=== PATIENT | female | born 1985 | race Caucasian/White ===

== ENCOUNTER 2020-06-22 23:10 | Emergency (ER) | payer OTHER ==
[~2020-06-22] VITALS: Ht 172.7 cm; Wt 102.1 kg
[2020-06-22 23:58] VITALS: BP 115/76
[2020-06-23] MEDS ORDERED: IBUPROFEN 600 MG TABLET PO ONE
[2020-06-23] MEDS ORDERED: IBUPROFEN 600 MG TABLET ONE (00:19)
[2020-06-23] MEDS ORDERED: IBUP-1957 PO (00:30)
== END 2020-06-23 01:08 | disposition home or self-care (01) ==
LOC: ER 23:15
DX: S89.82XA Other specified injuries of left lower leg, initial encounter (principal); Z88.2 Allergy status to sulfonamides; Z88.6 Allergy status to analgesic agent; Z60.2 Problems related to living alone; Z79.899 Other long term (current) drug therapy; X58.XXXA Exposure to other specified factors, initial encounter; Y93.89 Activity, other specified; Y92.89 Other specified places as the place of occurrence of the external cause; Y99.8 Other external cause status
CPT/HCPCS: 73610-TC; 73630-TC

== ENCOUNTER 2022-08-10 23:56 | Emergency (ER) | payer BC, OTHER ==
[~2022-08-10] VITALS: Ht 177.8 cm; Wt 113.4 kg
[~2022-08-10 23:56] MED LIST: IBUP-1957 PO
--- NOTE | 2022-08-11 01:35 | NUR ---
CAME WITH CC OF LAC WOUND ON LEFT INDEX FINGER 1CM. PATIENT WAS USING POWER TOOLS AT AROUND 2300 AND WAS NOT PAYING ATTENTION AND SUSTAINED HAND INJURY. PLACED IN CHAIR. TETANUS SHOTS UPDATED.
--- NOTE | 2022-08-11 01:38 | NUR ---
SEEN AND EXAMINED BY DR HATFIELD
[2022-08-11 01:39] VITALS: TEMP 97.9
--- NOTE | 2022-08-11 02:29 | NUR ---
SUTURING OF WOUND DONE UNDER LOCAL ANESTHESIA
--- NOTE | 2022-08-11 02:39 | NUR ---
Patient discharged to home in stable condition. Written and verbal after care instructions given. Patient verbalizes understanding of instruction.
[2022-08-11 02:40] VITALS: BP 109/71
== END 2022-08-11 02:41 | disposition home or self-care (01) ==
LOC: ER 23:58
DX: S61.211A Laceration without foreign body of left index finger without damage to nail, initial encounter (principal); Z88.2 Allergy status to sulfonamides; Z88.8 Allergy status to other drugs, medicaments and biological substances; Z79.899 Other long term (current) drug therapy; W26.8XXA Contact with other sharp object(s), not elsewhere classified, initial encounter; Y93.89 Activity, other specified; Y92.89 Other specified places as the place of occurrence of the external cause; Y99.8 Other external cause status

== ENCOUNTER 2023-09-08 23:53 | Emergency (ER) | payer BC ==
[~2023-09-08] VITALS: Ht 175.3 cm; Wt 99.8 kg
[2023-09-09 00:47] LABS: BASOPHILS % (AUTO) 0.3 % (0.0-2.0); EOSINOPHILS # (AUTO) 0.2 K/uL (0.0-0.7); EOSINOPHILS % (AUTO) 2.5 % (0.0-6.0); HEMATOCRIT 41 % (33-45); HEMOGLOBIN 13.4 g/dL (11.5-14.8); LYMPHOCYTES # (AUTO) 2.5 K/uL (0.8-4.8); LYMPHOCYTES % (AUTO) 27.1 % (20.0-44.0); MEAN CORPUSCULAR HEMOGLOBIN 32 PG (26.0-33.0); MEAN CORPUSCULAR HGB CONC 33 g/dl (31.0-36.0); MEAN CORPUSCULAR VOLUME 96 fL (82-100); MONOCYTES # (AUTO) 0.6 K/uL (0.1-1.30); MONOCYTES % (AUTO) 6.5 % (2.0-12.0); NEUTROPHILS # (AUTO) 5.9 K/uL (1.8-8.9); NEUTROPHILS % (AUTO) 63.6 % (43.0-81.0); PLATELET COUNT (AUTO) 233 K/uL (150-450); RED BLOOD CELL COUNT(AUTO) 4.23 MIL/uL (4.0-5.2); RED CELL DISTRIBUTION WIDTH 13.4 % (11.5-15.0); WHITE BLOOD COUNT (AUTO) 9.2 K/uL (4.3-11.0)
[2023-09-09] MEDS ORDERED: MORPHINE SULFATE INJ 4 MG/ML DISP.SYRIN ONE (00:49)
[2023-09-09] MEDS ORDERED: ONDANSETRON HCL/PF 4 MG/2 ML VIAL ONE (00:49)
[2023-09-09] MEDS: MORPHINE SULFATE INJ 2 MG/ML DISP.SYRIN IV ONE (00:53)
[2023-09-09] MEDS: ONDANSETRON HCL/PF 4 MG/2 ML VIAL IVP ONE (00:53)
[2023-09-09 00:56] LABS: CREATININE 0.8 mg/dL (0.6-1.3); POTASSIUM 4.1 mmol/L (3.5-5.1)
[2023-09-09] MEDS ORDERED: KETOROLAC TROMETHAMINE INJ 30 MG/ML VIAL ONE (01:00)
[2023-09-09 01:02] LABS: ALBUMIN 3.3 g/dL (3.4-5.0); BILIRUBIN,DIRECT 0.1 mg/dL (0.0-0.2); BILIRUBIN,TOTAL 0.3 mg/dL (0.2-1.0); TOTAL PROTEIN, SERUM 7.3 g/dL (6.4-8.2)
[2023-09-09] MEDS: KETOROLAC TROMETHAMINE 15 MG/ML VIAL IV ONE (01:03)
[2023-09-09 01:38] LABS: APPEARANCE,URINE CLEAR (CLEAR); BILIRUBIN,URINE NEGATIVE (NEGATIVE); BLOOD, URINE NEGATIVE Ery/uL (NEGATIVE); COLOR,URINE YELLOW (YELLOW); KETONES,URINE NEGATIVE (NEGATIVE); LEUKOCYTE ESTERASE ,URINE 1+ (NEGATIVE); NITRITE, URINE NEGATIVE (NEGATIVE); PROTEIN,URINE NEGATIVE (NEGATIVE); UGLUCOSE NEGATIVE (NEGATIVE); UROBILINOGEN,URINE 0.2 EU/dL (0.2)
[2023-09-09 01:45] LABS: PREGNANCY TEST URINE QUAL NEGATIVE (NEGATIVE)
[2023-09-09 02:04] LABS: ADD URINE CULTURE YES; BACTERIA,URINE 3+ /HPF (None Seen); RBC,URINE NONE SEEN /HPF (0-2); SQUAMOUS EPITHELIAL CELL,UR 21-50 /HPF (None Seen)
[2023-09-09] MEDS ORDERED: IBUP-1953 PO (02:33)
[2023-09-09] MEDS ORDERED: CEPH500T PO (02:33)
[2023-09-09 02:57] VITALS: BP 126/81; TEMP 98.6; O2SAT 99
== END 2023-09-09 02:57 | disposition home or self-care (01) ==
LOC: ER 23:59
DX: N39.0 Urinary tract infection, site not specified (principal); R10.31 Right lower quadrant pain; R11.0 Nausea; Z88.2 Allergy status to sulfonamides; Z88.6 Allergy status to analgesic agent; Z60.2 Problems related to living alone
CPT/HCPCS: 99285; 74176; 96374; 76705; 96375; 85025; 80048; 87086; 83690; 80076; 84703; 81001; 36415; J2270; J1885; J2405